=== PATIENT | female | born 1975 | race African-American/Black ===

== ENCOUNTER 2023-11-13 11:32 | Outpatient (CLI) | payer OTHER, SELFPAY ==
[2023-11-13 12:58] LABS: HIV 1/2 Ab P24 Ag Result Negative (Negative)
[2023-11-13 13:39] LABS: Hepatitis C Virus Antibody Negative (Negative)
[2023-11-13 21:05] LABS: Rapid Plasma Reagin Non-Reactive (NonReactive)
[2023-11-15 12:03] LABS: Hepatitis Be Antibody NON-REACTIVE (NON-REACTIVE)
== END 2023-11-13 11:33 | disposition home or self-care (01) ==
LOC: ANHLAB 11:36
PROVIDERS: Visit Provider Nurse Practitioner Obstetrics & Gynecology
DX: Z11.3 Encounter for screening for infections with a predominantly sexual mode of transmission (principal)
CPT/HCPCS: 36415; 86592; 86703; 86707; 86803; G0432

== ENCOUNTER 2024-01-22 10:25 | Outpatient (CLI) | payer OTHER, SELFPAY ==
--- NOTE | ~2024-01-22 | US_ITS ---
EXAM: PELVIC ULTRASOUND HISTORY: R10.2 - Pelvic and perineal pain post tubal ligation and endometrial ablation. COMPARISON: None. FINDINGS: UTERUS: 7.6 x 2.6 x 3.4 cm. The uterus is anteverted and anteflexed. The endometrial complex measures 2.4 mm. Multiple nabothian cysts are identified within the cervix. A single simple cyst is identified within the uterus measuring 5 x 3 x 4 mm with increased through tr ansmission. Bulky calcification is identified adjacent to this cyst measuring 3 mm in greatest dimension. RIGHT OVARY: The right ovary is unremarkable in size measuring 4.4 x 1.9 x 2.5 cm. Within the right ovary is a well-circumscribed focus of mixed echogenicity measuring 16 x 8 x 14 mm, likely an involuting cyst. Arterial and venous flow are identified. LEFT OVARY: The left ovary is unremarkable in echogenicity and size measuring 4 x 1.3 x 2.1 cm Both arterial and venous flow are identified. No free fluid is identified within the pelvis. IMPRESSION: Likely an involuting cyst within the right ovary. Single simple cyst within the uterus with adjacent bulky calcification Static imaging does not demonstrate findings suggestive of pelvic congestion. Reviewed, dictated and finalized at location A.
== END 2024-01-22 10:26 | disposition home or self-care (01) ==
PROVIDERS: Visit Provider Nurse Practitioner Obstetrics & Gynecology
DX: N85.8 Other specified noninflammatory disorders of uterus (principal); R10.2 Pelvic and perineal pain
CPT/HCPCS: 76830; 76856

== ENCOUNTER 2024-02-07 11:24 | Emergency (ER) | payer OTHER, SELFPAY ==
--- NOTE | ~2024-02-07 | XR_ITS ---
EXAMINATION: XR foot LT min 3V DATE: 02/07/2024 12:27 INDICATION: Left foot injury and pain. TECHNIQUE: 4 views of left foot were obtained. COMPARISON: None. FINDINGS: Alignment is normal. No fracture. There is mild osteoarthritis of first metatarsophalangeal joint. There is an enthesophyte at plantar aspect of calcaneal tuberosity. IMPRESSION: 1. Mild osteoarthritis of first metatarsophalangeal joint. Reviewed, dictated and finalized at location A. R [employer]
[2024-02-07 11:34] VITALS: BP 153/92; PULSE 100; RESP 20; TEMP 35.9; O2SAT 100
--- NOTE | 2024-02-07 12:47 | ED.LOWEXIN ---
HPI - Extremity Injury (Lower) General Chief Complaint: Extremity Injury, Lower Stated Complaint: L foot pain Time Seen by Provider: 02/07/24 12:10 Source: patient Mode of arrival: ambulatory Limitations: no limitations History of Present Illness HPI Narrative: A 49-year-old who injured her left foot last night. Was walking and rolled her left ankle and is having pain now in her lateral left foot. Pain with ambulation but she is able to walk. No other injury. Related Data Allergies Allergy/AdvReac Type Severity Reaction Status Date / Time No Known Drug Allergies AdvReac Mild na Verified 02/07/24 11:41 Review of Systems Review of Systems: All systems reviewed & are unremarkable except as noted in HPI and below PMFSH Past Medical History Medical History Anxiety Depression Elective Surgical History Surgical History H/O dilation and curettage H/O myomectomy H/O tubal ligation History of endometrial ablation Family History Family History Mother Diabetes mellitus Sibling Diabetes mellitus Hypertension Grandparent Depression Alcoholism Social History Social History Smoking status: Never smoker Alcohol intake: current Substance use: never Exam Narrative: Constitutional: Generally well appearing, no acute distress Head: Atraumatic, no deformities. Eyes: Pupils equal, round, and reactive to light. Neck: Supple, no tracheal deviation, no JVD. ENMT: Mucous membranes moist Cardiovascular: S1, S2 auscultated. No murmurs, rubs, or gallops. No S3/S4. Normal Distal pulses. No peripheral edema. Respiratory: Lung sounds equal. No wheezes, rales, or rhonchi. Gastrointestinal: Abdomen was soft, nondistended Musculoskeletal: Normal muscle tone and bulk. Mild tenderness in the plantar aspect of the left foot on the lateral aspect. Non specific and no focal bony tenderness. No swelling. No deformity. Distally neurovascularly intact. Skin: No rashes. Neurological: Strength 5/5 in extremities. Distal sensation intact. Mental Status: Awake, alert and oriented x3. Follows commands Course Vital Signs Vital signs: Vital Signs Temperature 35.9 C L 11/08/24 11:34 Pulse Rate 100 02/07/24 11:34 Respiratory Rate 20 02/07/24 11:34 Blood Pressure 153/92 H 02/07/24 11:34 Pulse Oximetry 100 02/07/24 11:34 Oxygen Delivery Room Air 02/07/24 11:34 Temperature 35.9 C L 02/07/24 11:34 Pulse Rate 100 02/07/24 11:34 Respiratory Rate 20 02/07/24 11:34 Blood Pressure 153/92 H 02/07/24 11:34 Pulse Oximetry 100 02/07/24 11:34 Oxygen Delivery Room Air 02/07/24 11:34 MDM - Extremity Injury (Lower) MDM Narrative Medical decision making narrative: Well-appearing 49-year-old here for left foot injury, rolled it during a trip and fall last night. Ambulatory in the ER. Generally well appearing on exam. Mild tenderness to the lateral aspect of the foot. Distally neurovascularly intact. X-ray obtained showing no fracture. Shows mild arthritis. Suspect likely mild sprain. Wrapped in Alcon wrap, given ibuprofen, and prescriptions for NSAIDs. Pt feeling improved and would like to go home at this point. Return precautions were given to the patient include any new or worsening symptoms or development of and not limited to any chest pain, shortness of breath, lightheadedness, abdominal pain, fevers, chills. Patient understands and agrees. They are to follow-up with her PCP. All questions were answered. I reviewed the patient's vital signs, history, allergies, and labs and imaging workup. Discharge Plan Discharge Clinical Impression: Foot sprain Patient Disposition: Home, Self-Care Condition: Stable Instructions: Antibiotic Form, Foot Sprain (ED) Prescriptions: New naproxen 500 mg tablet 500 mg PO BID PRN (Reason: pain) Qty: 20 0RF Follow-up/Referrals: PHYSICIAN,LAUNDRY ROUTEMAN [Primary Care Provider] - Time of Disposition: 12:51
[2024-02-07] MEDS: IBUPROFEN 400 MG TABLET PO (13:15)
[2024-02-07 13:19] VITALS: BP 136/80; PULSE 78; RESP 16; TEMP 36.6; O2SAT 98
== END 2024-02-07 13:21 | disposition home or self-care (01) ==
LOC: ANHED 12:53
PROVIDERS: Emergency Provider Emergency Medicine
DX: S93.602A Unspecified sprain of left foot, initial encounter (principal); X58.XXXA Exposure to other specified factors, initial encounter
CPT/HCPCS: 73630; 99283; A9270